=== PATIENT | male | born 1995 | race Caucasian/White ===

== ENCOUNTER 2017-05-04 11:33 | Emergency (ER) | payer BC ==
[~2017-05-04] VITALS: Ht 172.7 cm; Wt 63.5 kg
[~2017-05-04 11:33] MED LIST: Crutch1 EACH MISC; Cyclobenzaprine5 MG PO; IBUP800 PO; Norco 5-325 Ta1 EACH PO
[2017-05-04] MEDS ORDERED: Zofran Odt4 MG SL (12:44)
== END 2017-05-04 12:58 | disposition home or self-care (01) ==
LOC: ER 11:33
DX: K52.9 Noninfective gastroenteritis and colitis, unspecified (principal); F17.200 Nicotine dependence, unspecified, uncomplicated
CPT/HCPCS: 99283

== ENCOUNTER 2017-05-29 07:21 | Emergency (ER) | payer BC ==
[~2017-05-29] VITALS: Ht 172.7 cm; Wt 63.5 kg
[~2017-05-29 07:21] MED LIST changes: +Zofran Odt4 MG SL
[2017-05-29] MEDS ORDERED: Robaxin-750750 MG PO (08:27)
[2017-05-29] MEDS ORDERED: IBUP800 PO (08:27)
== END 2017-05-29 08:41 | disposition home or self-care (01) ==
LOC: ER 07:21
DX: S16.1XXA Strain of muscle, fascia and tendon at neck level, initial encounter (principal); X58.XXXA Exposure to other specified factors, initial encounter
CPT/HCPCS: 72040; 96372; 99283; J1885

== ENCOUNTER 2017-12-23 01:02 | Emergency (ER) | payer BC ==
[~2017-12-23] VITALS: Ht 172.7 cm; Wt 68.0 kg
[~2017-12-23 01:02] MED LIST changes: +Robaxin-750750 MG PO
== END 2017-12-23 03:31 | disposition home or self-care (01) ==
LOC: ER 01:02
DX: S01.511A Laceration without foreign body of lip, initial encounter (principal); S00.01XA Abrasion of scalp, initial encounter; F10.129 Alcohol abuse with intoxication, unspecified; W50.0XXA Accidental hit or strike by another person, initial encounter; Y93.72 Activity, wrestling
CPT/HCPCS: 12011; 99282

== ENCOUNTER → 2020-04-19 | Outpatient (CLI) | payer BC | END | disposition home or self-care (01) | LOC: LAB SHORT 12:16 | DX: J02.9 Acute pharyngitis, unspecified (principal) | CPT/HCPCS: 87081; 87147 ==

== ENCOUNTER 2020-11-12 00:40 | Emergency (ER) | payer BC | END 2020-11-12 01:06 | disposition left against medical advice (07) | LOC: ER 00:40 | DX: Z53.21 Procedure and treatment not carried out due to patient leaving prior to being seen by health care provider (principal) ==

== ENCOUNTER 2021-06-03 21:48 | Emergency (ER) | payer BC ==
[~2021-06-03] VITALS: Ht 172.7 cm; Wt 74.8 kg
[2021-06-03 22:16] LABS: Source, Urine Clean Catch
[2021-06-03 22:18] LABS: BASOPHILS ABSOLUTE AUTO 0.07 K/mm3 (0.00-0.23); BASOPHILS PERCENT AUTO 1 % (0-2); Bilirubin, Urine Neg (Neg); Blood, Urine Neg (Neg); EOSINOPHILS PERCENT AUTO 5 % (0-6); Glucose Qualitative, Urine Neg (Neg); Hematocrit 45.3 % (37.0-53.0); Hemoglobin 15.6 g/dL (13.5-17.5); IMMATURE GRAN ABSOLUTE AUTO 0.04 K/mm3 (0.00-0.10); IMMATURE GRAN PERCENT AUTO 0 % (0-1); Ketones, Urine Neg (Neg); LYMPHOCYTES ABSOLUTE AUTO 3.49 K/mm3 (0.84-5.20); LYMPHOCYTES PERCENT AUTO 38 % (21-46); Leukocyte Esterase, Urine Neg (Neg); MONOCYTES PERCENT AUTO 8 % (4-13); Mean Corpuscular HGB Conc 34.4 g/dL (31.5-36.5); Mean Corpuscular Volume 81 fL (80-100); Mean Platelet Volume 9.7 fL (9.1-12.4); NEUTROPHILS ABSOLUTE AUTO 4.42 K/mm3 (1.96-9.15); NEUTROPHILS PERCENT AUTO 48 % (41-73); Nitrite, Urine Neg (Neg); Platelet Count 349 K/mm3 (150-400); Protein, Urine Neg (Neg); RDW Coefficient Variation 13.4 % (11.7-14.2); RDW Standard Deviation 39.3 fL (35.1-46.3); Red Blood Cell Count 5.57 M/mm3 (4.30-5.90); Urobilinogen, Urine NORM (Normal); White Blood Cell Count 9.22 K/mm3 (4.00-11.30)
[2021-06-03 22:23] LABS: Appearance, Urine Clear (Clear); Color, Urine Pale Yellow (P-Yellow)
[2021-06-03 22:40] LABS: Alanine Aminotransfer (ALT/SGP 95 U/L (12-78); Albumin, Blood 4.5 g/dL (3.4-5.0); Albumin/Globulin Ratio 1.2 (0.8-1.8); Alk Phos 131 U/L (50-136); Anion Gap 11 mmol/L (6-16); Aspartate Aminotrans (AST/SGOT 41 U/L (12-37); Bilirubin, Total 0.2 mg/dL (0.1-1.0); Blood Urea Nitrogen 10 mg/dL (8-24); Bun/Creatinine Ratio 11.8 (12.0-20.0); CO2, Blood 21 mmol/L (21-32); Calcium, Blood 8.9 mg/dL (8.5-10.1); Chloride, Blood 109 mmol/L (98-108); Creatinine, Blood 0.85 mg/dL (0.60-1.20); Globulin, Blood 3.9 g/dL (2.2-4.0); Glomerular Filtration Rate >60 (60-); Glucose, Blood 108 mg/dL (70-99); Potassium, Blood 3.3 mmol/L (3.5-5.5); Sodium, Blood 141 mmol/L (136-145); Total Protein, Blood 8.4 g/dL (6.4-8.2)
== END 2021-06-04 00:07 | disposition left against medical advice (07) ==
LOC: ER 21:48
PROVIDERS: Emergency Medicine
DX: R10.11 Right upper quadrant pain (principal); Z53.21 Procedure and treatment not carried out due to patient leaving prior to being seen by health care provider
CPT/HCPCS: 36415; 80053; 81003; 85025

== ENCOUNTER 2022-04-22 10:51 | Emergency (ER) | payer OTHER ==
[~2022-04-22] VITALS: Ht 172.7 cm; Wt 84.4 kg
[2022-04-23] MEDS ORDERED: Robaxin750 MG PO (16:13)
[2022-04-23] MEDS ORDERED: LIDO700A20 TOP (16:13)
== END 2022-04-22 13:45 | disposition home or self-care (01) ==
LOC: ER 10:51
DX: M54.9 Dorsalgia, unspecified (principal); F17.210 Nicotine dependence, cigarettes, uncomplicated; X50.0XXA Overexertion from strenuous movement or load, initial encounter
CPT/HCPCS: 72070; A9270

== ENCOUNTER 2022-04-23 12:34 | Emergency (ER) | payer OTHER ==
[~2022-04-23] VITALS: Ht 172.7 cm; Wt 83.9 kg
[2022-04-23] MEDS ORDERED: LIDO700A20 TOP (16:13)
[2022-04-23] MEDS ORDERED: Robaxin750 MG PO (16:13)
== END 2022-04-23 16:28 | disposition home or self-care (01) ==
LOC: ER 12:34
DX: M54.9 Dorsalgia, unspecified (principal); F17.210 Nicotine dependence, cigarettes, uncomplicated; X50.0XXA Overexertion from strenuous movement or load, initial encounter
CPT/HCPCS: A9270; J1885